=== PATIENT | male | born 1985 | race Caucasian/White ===

== ENCOUNTER 2025-04-20 14:53 | Outpatient (REF) | payer MEDICAID, SELFPAY ==
--- OUTSIDE RECORDS SUMMARY | 2025-04-20 14:58 | XMS_ITS | Encounter Summary ---
Author Organization [employer] Address [address] [place] [address] [address] [place] [address] Care Team Providers Care Manager Traffic Name Role Phone Lesley Bauman MD Primary Care Provider Danyell Agosto MD Primary Care Provide r Reason for Visit * Reason Comments Med Refill Encounter Details Date Type Department Care Team ([facility] st Contact Info) Description 12/08/2022 Refill [facility] MEDICINE [address] [place] [address] Olena Pina MD [address] [place] [address] Opioid dependence, uncomplicated (CMS/HCC) Social History Tobacco Use Types Packs/Day Years Used Date Smoking Tobacco: Every Day Cigarettes Sex and Gender Information Value Date Recorded Sex Assigned at Male 07/14/2022 10:19 AM EDT Legal Sex Male 10:19 AM EDT Gender Identity Male 07/14/2022 10:19 AM EDT Sexual Orientation Straight 07/14/2022 10 :19 AM EDT COVID-19 Exposure Response Date Recorded In the last 10 days, have yo u been in contact with someone who was confirmed or suspected to have Coronavirus/COVID-19? No / Unsure 12/04/2022 2:47 PM EDT documented as of this encounter Miscellaneous Notes * Telephone Encounter - Olena Pina MD - 12/09/2022 10:26 AM EDT Approving, but needs appt for additional refills. documented in this encounter Plan of Treatment Upcoming Encounters Date Type Department Care Team (Late st Contact Info) Description 05/04/2025 2:45 PM EDT Clinical Support [facility] MEDICINE [address] [place] [address] Trav Ruiz, RN [address] [place] [address] documented as of this encounter Visit Diagnoses Diagnosis Opioid dependence, uncomplicated (CMS/HCC) documented in this encounter Care Teams Manager Traffic Relationship Specialty Start Date End Date Lesley Bauman MD PCP - General Family Medicine 06/10/22 01/07/23 Danyell Schwab MD [address] [place] [id number] PCP - General Internal Medicine 01/08/23 documented as of this encounter
[2025-04-20 16:40] LABS: Alanine Aminotransferase 93 U/L (0-40); Albumin Level 4.9 g/dL (3.5-5.0); Alkaline Phosphatase 75 U/L (39-117); Aspartate Amino Transferase 97 U/L (5-37); Total Protein 7.5 g/dL (6.5-8.0)
[2025-04-21 08:06] LABS: ~Hepatitis A Antibody IgG 0.24 S/CO (0.00-0.99)
[2025-04-21 08:27] LABS: HBS Num1 > 1000.00 mIU/mL (0-7.99); HBc Num1 0.46 S/CO (0.00-0.79); HBsAGNum1 0.38 S/CO (0.00-0.99); HIV Num 1 0.10 S/CO (0.00-0.99); Hepatitis B Surface Antigen Negative (Negative); ~Hepatitis B Surface Antibody REACTIVE (Nonreactive)
[2025-04-21 08:28] LABS: Syphilis Screen Nonreactive (Nonreactive)
[2025-04-22 15:18] LABS: HCV Log PCR 5.86 Log IU/mL (NOT DETECTED); HepC Viral Load 729000 IU/mL (NOT DETECTED)
[2025-04-23 16:28] LABS: TS Negative Control Passed; TS Panel A 0; TS Panel B 0; TS Positive Control Passed; TSpotTB Negative (Negative)
== END 2025-04-20 14:54 | disposition home or self-care (01) ==
LOC: HO.HHCL 14:53
PROVIDERS: Visit Provider Family Medicine
DX: Z11.4 Encounter for screening for human immunodeficiency virus [HIV] (principal); Z11.59 Encounter for screening for other viral diseases; F11.20 Opioid dependence, uncomplicated; Z11.1 Encounter for screening for respiratory tuberculosis
CPT/HCPCS: 36415; 80076; 86481; 86704; 86706; 86708; 86780; 87340; 87389; 87522

== ENCOUNTER 2025-04-26 13:17 | Outpatient (REF) | payer MEDICAID, SELFPAY ==
--- OUTSIDE RECORDS SUMMARY | 2025-04-26 13:47 | XMS_ITS | Encounter Summary ---
Author Organization [employer] Address [address] [place] [address] [address] [place] [address] Care Team Providers Care Housing Management Officer Name Role Phone Lesley Bauman MD Primary Care Provider Danyell Agosto MD Primary Care Provide r Reason for Visit * Reason Comments Med Refill Encounter Details Date Type Department Care Team ([facility] st Contact Info) Description 12/08/2022 Refill [facility] MEDICINE [address] [place] [address] Olena Pina MD [address] [place] [address] Opioid dependence, uncomplicated (CMS/HCC) Social History Tobacco [...] Description 05/04/2025 2:45 PM EDT Clinical Support [facility] MEDICINE [address] [place] [address] Trav Ruiz, RN [address] [place] [address] documented as of this encounter Visit Diagnoses Diagnosis Opioid dependence, uncomplicated (CMS/HCC) documented in this encounter Care Teams Housing Management Officer Relationship Specialty Start Date End Date Lesley Bauman MD PCP - General Family Medicine 06/10/22 01/07/23 Danyell Schwab MD [address] [place] [id number] PCP - General Internal Medicine 01/08/23 documented as of this encounter
[2025-04-26 16:37] LABS: MANUAL DIFF FLAG NO
[2025-04-26 16:51] LABS: Hematocrit 43.7 % (42.0-52.0); Hemoglobin 14.6 g/dl (14.0-18.0); Imm Gran Abs Auto 0.02 X10*3/uL (0.00-0.03); Imm Gran Pct Auto 0.2 % (0.0-0.4); Lymphocytes Absolute Auto 2.6 X10*3/uL (1.2-4.9); Mean Corpuscular HGB Conc 33.4 g/dl (31.0-36.0); Mean Corpuscular Hemoglobin 29.7 pg (27.0-33.0); Mean Corpuscular Volume 89.0 fL (80.0-98.0); NRBC Abs Auto 0.000 X10*3/uL (0.0-0.012); NRBC Pct Auto 0.0 /100WBC (0.0-0.2); Platelet Count 203 X10*3/uL (160-400); Red Blood Count 4.91 X10*6/uL (4.60-5.80); White Blood Count 8.4 X10*3/uL (4.8-10.8)
[2025-04-26 17:11] LABS: Anion Gap 15 (12-20); Blood Urea Nitrogen 15 mg/dL (9-16); Calcium 9.5 mg/dL (8.4-10.2); Carbon Dioxide 30 mmol/L (22-29); Chloride 102 mmol/L (96-108); Estimated Glomerular Filt Rate > 60; Potassium 4.6 mmol/L (3.3-5.1); Sodium 142 mmol/L (135-145)
[2025-05-01 01:48] LABS: FIB-ALT 49 U/L (9-46); FIB-Alpha-2-Macroglobulin 212 mg/dL (106-279); FIB-Apolipoprotein A1 197 mg/dL (94-176); FIB-GGT 53 U/L (3-90); FIB-Haptoglobin 99 mg/dL (43-212); FIB-Total Bilirubin 0.3 mg/dL (0.2-1.2); Liver Fibrosis Score 0.12; Liver Fibrosis Stage F0; Nec Inflam Act Grade A0-A1; Nec Inflam Act Score 0.23
== END 2025-04-26 13:18 | disposition home or self-care (01) ==
LOC: HO.HHCL 13:17
PROVIDERS: Visit Provider Family Medicine
DX: B18.2 Chronic viral hepatitis C (principal)
CPT/HCPCS: 36415; 80048; 81596; 85025; 87902